=== PATIENT | female | born 1975 | race Caucasian/White ===

== ENCOUNTER 2020-09-05 14:45 | Observation (INO) ==
[2020-09-05 15:57] VITALS: BMI 34.7
--- NOTE | 2020-09-05 17:22 | RAD ---
CHEST, 1 VIEWHistory: PT C/O SOBComparison: NoneFindings: Cardiac silhouette is mildly enlarged without congestive failure. No acute alveolar infiltrate or significant effusion is identified. No pneumothorax.Impression: Mild cardiomegaly without CHF or additional acute cardiopulmonary abnormality.Electronically signed by: YUMIKO CALIXTO (Sep 05, 2020 17:20:48)
[2020-09-05 17:33] LABS: BASOPHILS # (AUTO) 0.1 X10^3/uL (0.0-0.1); BASOPHILS % (AUTO) 0.7 % (0.2-1.0); EOSINOPHILS # (AUTO) 0.3 x10^3/uL (0.0-0.2); EOSINOPHILS % (AUTO) 3.3 % (0.9-2.9); HEMATOCRIT 34.8 % (36.0-47.0); HEMOGLOBIN 11.9 g/dL (12.0-16.0); LYMPHOCYTES # (AUTO) 1.1 X10^3/uL (1.3-2.9); LYMPHOCYTES % (AUTO) 13.8 % (21.0-51.0); MEAN CORPUSCULAR HEMOGLOBIN 33.4 pg (27.0-34.0); MEAN CORPUSCULAR HGB CONC 34.1 g/dL (33.0-35.0); MEAN CORPUSCULAR VOLUME 97.9 fL (80.0-100.0); MEAN PLATELET VOLUME 10.8 fL (7.4-11.0); MONOCYTES # (AUTO) 0.9 x10^3/uL (0.3-0.8); MONOCYTES % (AUTO) 11.2 % (0.0-13.0); NEUTROPHILS # (AUTO) 5.5 x10^3/uL (2.2-4.8); PLATELET COUNT 74 X10^3/uL (150.0-450.0); RED BLOOD COUNT 3.56 X10^6/uL (3.5-5.4); RED CELL DISTRIBUTION WIDTH 14.6 % (11.6-16.5); WHITE BLOOD COUNT 7.8 X10^3/uL (3.6-10.0)
--- NOTE | 2020-09-05 17:52 | DR.EXTPAIN ---
HPI Time seen Time Seen by Provider: 09/05/20 16:00 PCP [facility] Complaint/Symptoms Chief Complaint:: PT C/O HAVING SWELLING TO HER RT LOWER EXT. PT STATES LAST WEEK HAD THE DOPPLER AND WAS NEGATIVE. SHE WENT BACK THE HER PCP TODAY. WAS SENT TO [facility] TO HAVE A D DIMER DONE. PCP CALLED AND STATED LEVELS WERE HIGH AND SHE NEEDED TO GO TO THE ED TO HAVE FURTHER EVALUATIONS COVID-19 Coronavirus risk:travel/contact w/high risk person: No Has patient experienced Coronavirus symptoms: No Source History Provided: Patient Mode of arrival Mode of Arrival: Ambulatory Timing Onset of Chief Complaint: 08/15/20 PMH PMH Past Medical History: Yes Past Medical History: Arthritis, Diabetes and Dyslipidemia Past Surgical History: No Family History History of Family Medical Conditions: No Social History Does patient currently use any type of tobacco product: Yes Have you used tobacco products in the last 12 months: Yes Type of Tobacco Use: Cigarettes Does any household member use tobacco: Yes Alcohol Use: None Do you use any recreational Drugs:: No Lives With: Family Lives Where: Home Travel Risk Coronavirus risk:travel/contact w/high risk person: No Has patient experienced Coronavirus symptoms: No Infectious screening In the last 2 months have you had wt loss of >10#?: NO Have you had fever, night sweats or hemotysis?: No Have you traveled outside the country in the last 6 months?: No Isolation: Standard ROS Review of Systems Constitutional: No Symptoms Reported and See HPI Eyes: No Symptoms Reported and See HPI ENTM: No Symptoms Reported and See HPI Respiratoy: No Symptoms Reported and See HPI Cardiovascular: No Symptoms Reported and See HPI Gastrointestinal/Abdominal: No Symptoms Reported and See HPI Genitourinary: No Symptoms Reported and See HPI Neurological: No Symptoms Reported and See HPI Musculoskeletal: No Symptoms Reported and See HPI Integumentary: No Symptoms Reported and See HPI Hematologic/Lymphatic: No Symptoms Reported and See HPI Endocrine: No Symptoms Reported and See HPI Psychiatric: No Symptoms Reported and See HPI All Other Systems: Reviewed and Negative PE Vital Signs Vitals: Temperature 98.1 F Pulse Rate 104 Respiratory Rate 22 Blood Pressure 150/70 O2 Sat by Pulse Oximetry 95 General Limitations: No Limitations General Appearance: Alert and In No Apparent Distress Head Head Exam: Normal Inspection Eyes Eye exam: Normal Appearance ENT ENT Exam: Normal Exam Neck Neck Exam: Normal Inspection Chest Chest Inspection: Normal Inspection Respiratory Respiratory Exam: Normal Lung Sounds Bilat Cardiovascular Cardiovascular Exam: Regular Rate and Normal Rhythm Abdominal Exam Abdominal Exam: Normal Inspection, Normal Bowel Sounds and Soft Extremities Extremities Exam: Normal Inspection Back Back Exam: Normal Inspection Neurological Neurological Exam: Alert, Oriented X3 and CN II-XII Intact Psychiatric Psychiatric Exam: Normal Affect and Normal Mood Skin Skin Exam: Warm, Dry, Intact and Normal Color ROR Labs Reviewed Result Diagrams: 09/06/20 03:59 09/06/20 03:59 Laboratory: WBC 7.8 X10^3/uL (3.6-10.0) 09/05/20 17:15 RBC 3.56 X10^6/uL (3.5-5.4) 09/05/20 17:15 Hgb 11.9 g/dL (12.0-16.0) L 09/05/20 17:15 Hct 34.8 % (36.0-47.0) L 09/05/20 17:15 MCV 97.9 fL (80.0-100.0) 09/05/20 17:15 MCH 33.4 pg (27.0-34.0) 09/05/20 17:15 MCHC 34.1 g/dL (33.0-35.0) 09/05/20 17:15 RDW 14.6 % (11.6-16.5) 09/05/20 17:15 Plt Count 74 X10^3/uL (150.0-450.0) L 09/05/20 17:15 MPV 10.8 fL (7.4-11.0) 09/05/20 17:15 Neut % (Auto) 71.0 % (42.0-75.0) 09/05/20 17:15 Lymph % (Auto) 13.8 % (21.0-51.0) L 09/05/20 17:15 Morgan % (Auto) 11.2 % (0.0-13.0) 09/05/20 17:15 Eos % (Auto) 3.3 % (0.9-2.9) H 09/05/20 17:15 Baso % (Auto) 0.7 % (0.2-1.0) 09/05/20 17:15 Neut # (Auto) 5.5 x10^3/uL (2.2-4.8) H 09/05/20 17:15 Lymph # (Auto) 1.1 X10^3/uL (1.3-2.9) L 09/05/20 17:15 Morgan # (Auto) 0.9 x10^3/uL (0.3-0.8) H 09/05/20 17:15 Eos # (Auto) 0.3 x10^3/uL (0.0-0.2) H 09/05/20 17:15 Baso # (Auto) 0.1 X10^3/uL (0.0-0.1) 09/05/20 17:15 Absolute Nucleated RBC 0.0 /100WBC 09/05/20 17:15 PT 15.7 SECONDS (11.8-14.3) 09/05/20 17:15 INR Target Range - 09/05/20 17:15 INR 1.29 (0.8-1.3) 09/05/20 17:15 APTT 37.7 SECONDS (22.9-36.5) H 09/05/20 17:15 PTT Comment - 09/05/20 17:15 D-Dimer 9.69 ug/ml (0.0-0.57) H* 09/05/20 17:15 Sodium 144 mmol/L (136-145) 09/05/20 17:15 Corrected Sodium TNP 09/05/20 17:15 Potassium 3.7 mmol/L (3.5-5.1) 09/05/20 17:15 Chloride 108 mmol/L (98-107) H 09/05/20 17:15 Carbon Dioxide 23.8 mmol/L (21-32) 09/05/20 17:15 BUN 13 mg/dL (7-18) 09/05/20 17:15 Creatinine 0.92 mg/dL (0.55-1.02) 09/05/20 17:15 Est GFR (MDRD) Af Amer > 60 (>60) 09/05/20 17:15 Est GFR (MDRD) Non-Af > 60 (>60) 09/05/20 17:15 Glucose 110 mg/dL (65-99) H 09/05/20 17:15 Calcium 9.3 mg/dL (8.5-10.1) 09/05/20 17:15 Corrected Calcium 10.1 mg/dL (8.5-10.1) 09/05/20 17:15 Total Bilirubin 0.80 mg/dL (0.2-1.0) 09/05/20 17:15 AST 44 Units/L (15-37) H 09/05/20 17:15 ALT 29 Units/L (12-78) 09/05/20 17:15 Alkaline Phosphatase 113 Units/L (46-116) 09/05/20 17:15 Creatine Kinase 138 Units/L (26-192) 09/05/20 17:15 CK-MB (CK-2) 1.4 ng/mL (0-4.0) 09/05/20 17:15 CK/CKMB % Calc 1.0 % (<4) 09/05/20 17:15 Troponin I < 0.02 ng/mL (0-1.5) 09/05/20 17:15 Total Protein 8.3 g/dL (6.4-8.2) H 09/05/20 17:15 Albumin 3.0 g/dL (3.4-5.0) L 09/05/20 17:15 Globulin 5.3 g/dL (2.5-4.5) H 09/05/20 17:15 Albumin/Globulin Ratio 0.6 Ratio (1.1-2.1) L 09/05/20 17:15 Opioid Opioid Risk Tool Age (Kyle box if 16-45): No History of Preadolescent Sexual Abuse: No Total: 0 Total Score Risk Category: Low Risk Copyright: Braden S[employer] predicting aberrant behaviors Instructions Instructions: Hyperglycemia, [id number] D-Dimer Test Steps to Quit Smoking, [id number] Type 2 Diabetes Mellitus, Self Care, Adult, Uolq-[id number] Peripheral Edema Diabetes Mellitus and Exercise Diabetes Mellitus and Nutrition Forms: Excuse From Work or School Precautions for COVID19 Patient Portal Social Distancing
--- NOTE | 2020-09-05 17:52 | VAS ---
HISTORYPOS D-DIMER, RLE PAIN, EDEMAHISTORY: [Extremity pain, swelling, and edema]Study: Right lower extremity Doppler venous ultrasound.TECHNIQUE: Multiple shaver scale and color flow Doppler images of the deep venous system were obtained of the [right] lower extremity.FINDINGS:The deep venous system of the [right] lower extremity evaluated from the level of the common femoral vein through the popliteal vein. Normal color flow and augmentation can be observed. In addition, normal compression is seen throughout the deep venous system. [No Malone's cyst is seen].IMPRESSION:1. Negative examination for DVT.Electronically signed by: CON ESPINO III (Sep 05, 2020 17:51:08)
[2020-09-05 17:54] LABS: ALANINE AMINOTRANSFERASE 29 Units/L (12-78); ALKALINE PHOSPHATASE 113 Units/L (46-116); ASPARTATE AMINO TRANSFERASE 44 Units/L (15-37); BLOOD UREA NITROGEN 13 mg/dL (7-18); CALCIUM 9.3 mg/dL (8.5-10.1); CARBON DIOXIDE 23.8 mmol/L (21-32); CHLORIDE 108 mmol/L (98-107); COR CA(FOR HYPOALB) 10.1 mg/dL (8.5-10.1); CREATINE KINASE 138 Units/L (26-192); CREATINE KINASE MB 1.4 ng/mL (0-4.0); CREATININE 0.92 mg/dL (0.55-1.02); SODIUM 144 mmol/L (136-145); TOTAL PROTEIN 8.3 g/dL (6.4-8.2); TROPONIN I < 0.02 ng/mL (0-1.5); eGFR NON BLACK RACES > 60 (>60)
[2020-09-05] MEDS ORDERED: SNACK - Diabetic Appropriate PO SCH (20:22)
[2020-09-05] MEDS ORDERED: LYRICA CAP 150 mg PO ONE (20:46)
[2020-09-05] MEDS ORDERED: GLUCOPHAGE ONE (20:47)
[2020-09-05] MEDS ORDERED: NS 1000 ML 1,000 ML ONE (20:47)
[2020-09-05] MEDS: GLUCOPHAGE PO SCH (20:53)
[2020-09-05] MEDS: LYRICA CAP 150 mg PO SCH (20:53)
[2020-09-05] MEDS: NS 1000 ML 1,000 ML IV SCH (20:53)
[2020-09-05] MEDS ORDERED: LOVENOX INJ 100 MG SYR SC ONE (21:07)
[2020-09-05] MEDS: LOVENOX INJ 100 MG SYR SC SCH ×2 (21:20→22:21)
[2020-09-06 01:11] LABS: BILIRUBIN,URINE NEGATIVE (NEGATIVE); BLOOD/HEMOGLOBIN,URINE 5+ (NEGATIVE); GLUCOSE, URINE NEGATIVE (NEGATIVE); KETONES,URINE NEGATIVE (NEGATIVE); LEUKOCYTE ESTERASE ,URINE NEGATIVE (NEGATIVE); NITRITES,URINE NEGATIVE (NEGATIVE); PROTEIN,URINE NEGATIVE (NEGATIVE); UROBILINOGEN,URINE 2+ (NORMAL)
[2020-09-06 01:22] LABS: APPEARANCE,URINE CLEAR (CLEAR); COLOR,URINE YELLOW (YELLOW)
[2020-09-06 01:24] LABS: BACTERIA,URINE NEGATIVE /HPF (NEGATIVE); SQUAMOUS EPITHELIAL CELL,UR NEGATIVE /HPF (NEGATIVE)
[2020-09-06 06:11] LABS: BASOPHILS # (AUTO) 0.1 X10^3/uL (0.0-0.1); BASOPHILS % (AUTO) 0.8 % (0.2-1.0); EOSINOPHILS # (AUTO) 0.3 x10^3/uL (0.0-0.2); EOSINOPHILS % (AUTO) 4.2 % (0.9-2.9); HEMATOCRIT 31.9 % (36.0-47.0); LYMPHOCYTES # (AUTO) 1.1 X10^3/uL (1.3-2.9); LYMPHOCYTES % (AUTO) 16.5 % (21.0-51.0); MEAN CORPUSCULAR HEMOGLOBIN 33.6 pg (27.0-34.0); MEAN CORPUSCULAR HGB CONC 34.3 g/dL (33.0-35.0); MEAN CORPUSCULAR VOLUME 97.9 fL (80.0-100.0); MEAN PLATELET VOLUME 11.4 fL (7.4-11.0); MONOCYTES # (AUTO) 0.7 x10^3/uL (0.3-0.8); MONOCYTES % (AUTO) 10.9 % (0.0-13.0); NEUTROPHILS # (AUTO) 4.5 x10^3/uL (2.2-4.8); NEUTROPHILS % (AUTO) 67.6 % (42.0-75.0); PLATELET COUNT 69 X10^3/uL (150.0-450.0); RED BLOOD COUNT 3.26 X10^6/uL (3.5-5.4); RED CELL DISTRIBUTION WIDTH 14.6 % (11.6-16.5); WHITE BLOOD COUNT 6.6 X10^3/uL (3.6-10.0)
[2020-09-06 06:20] LABS: ALANINE AMINOTRANSFERASE 28 Units/L (12-78); ALBUMIN 2.8 g/dL (3.4-5.0); ALKALINE PHOSPHATASE 89 Units/L (46-116); ASPARTATE AMINO TRANSFERASE 44 Units/L (15-37); BLOOD UREA NITROGEN 12 mg/dL (7-18); CALCIUM 8.7 mg/dL (8.5-10.1); CARBON DIOXIDE 24.7 mmol/L (21-32); CHLORIDE 109 mmol/L (98-107); COR CA(FOR HYPOALB) 9.7 mg/dL (8.5-10.1); CREATININE 0.75 mg/dL (0.55-1.02); SODIUM 143 mmol/L (136-145); eGFR NON BLACK RACES > 60 (>60)
[2020-09-06] MEDS ORDERED: ACTOS PO SCH (09:00)
[2020-09-06] MEDS ORDERED: GARLIC 100 MG PO SCH (09:00)
[2020-09-06] MEDS ORDERED: ASPIRIN EC 81 MG PO SCH (09:00)
[2020-09-06] MEDS ORDERED: ZOCOR TAB 20 MG PO SCH (09:00)
[2020-09-06] MEDS ORDERED: FERROUS GLUCONATE PO SCH (09:00)
[2020-09-06] MEDS ORDERED: VICTOZA SC SCH (09:00)
[2020-09-06] MEDS ORDERED: FERROUS SULFATE PO SCH (09:00)
[2020-09-06] MEDS ORDERED: HumuLIN 70/30 (NovoLIN 70/30) SC SCH (09:00)
[2020-09-06] MEDS ORDERED: GLUCOPHAGE ONE (09:17)
[2020-09-06 10:05] LABS: ABG BASE EXCESS -0.7 mmol/L (-2.0-2.0); ABG HCO3 23.2 mmol/L (22-26)
[2020-09-06 10:06] LABS: ABG ALLEN TEST POS
[2020-09-06] MEDS ORDERED: ELIQUIS PO SCH (10:15)
[2020-09-06] MEDS: GLUCOPHAGE PO SCH (11:07)
[2020-09-06] MEDS: LYRICA CAP 150 mg PO SCH (11:09)
--- NOTE | 2020-09-06 11:11 | NM ---
HISTORYElevated D-dimer chest pain shortness of breathSTUDYVentilation-perfusion lung scanTechnique: Ventilation scan was carried out using 30.2 millicuries technetium 99 M DTPA aerosol. Perfusion scan was carried out using intravenous injection of 5.5 millicuries technetium 99 MAA.COMPARISONNoneFINDINGSVentilation scan demonstrated symmetric ventilation without evidence for ventilation defects. Perfusion defect demonstrated symmetric perfusion without evidence for significant perfusion defects. The probability of acute pulmonary thromboembolic disease is felt to be low.IMPRESSIONLow probability acute pulmonary thromboembolic diseaseElectronically signed by: ELOY GUARDADO (Sep 06, 2020 11:10:02)
[2020-09-06] MEDS: NS 1000 ML 1,000 ML IV SCH (11:13)
[2020-09-06 17:08] VITALS: BP 136/63
[2020-09-14] MEDS ORDERED: ELIQUIS PO SCH (09:00)
== END 2020-09-06 18:25 | disposition home or self-care (01) ==
LOC: MED/SURG 15:51 → ER 15:51 → MED/SURG 20:11
PROVIDERS: ADMIT Obstetrics & Gynecology Obstetrics; ATTEND Obstetrics & Gynecology Obstetrics